=== PATIENT | female | born 1995 | race Caucasian/White ===

== ENCOUNTER 2018-11-08 18:47 | Emergency (ER) | payer BC ==
[2018-11-08] MEDS ORDERED: Lorazepam 2 MG/ML VIAL ONE (19:05)
[2018-11-08] MEDS ORDERED: Fentanyl 100 MCG/2 ML VIAL ONE (19:05)
--- NOTE | 2018-11-08 20:21 | RAD ---
LEFT KNEE TWO VIEWS: HISTORY: Knee injury. FINDINGS: There are no signs of fracture or joint effusion. The patella appears laterally subluxed. Clinical correlation is recommended. IMPRESSION: Lateral subluxation of the patella. POS: [facility]
--- NOTE | 2018-11-08 20:26 | RAD ---
LEFT KNEE TWO VIEWS: HISTORY: Post reduction. FINDINGS: The patella is now in a much better position on these two views. The subluxation or dislocation has been reduced. IMPRESSION: Reduction of patella. Patella now appears to be in good position. POS: [facility]
== END 2018-11-08 20:20 | disposition home or self-care (01) ==
LOC: ERS 18:47
DX: S83.015A Lateral dislocation of left patella, initial encounter (principal); X50.9XXA Other and unspecified overexertion or strenuous movements or postures, initial encounter
CPT/HCPCS: 27550; 96374; 96375; J2060; J3010